=== PATIENT | female | born 1985 | race Caucasian/White ===

== ENCOUNTER → 2017-03-18 21:22 | Emergency (ER) | payer OTHER ==
[~2017-03-18 21:22] MED LIST: Cyclobenzaprine TAB* 10 MG PO ONE; Dexamethasone TAB* 4 MG PO ONE; Ketorolac INJ* 60 MG/2 ML VIAL IM ONE; oxyCODONE/Acetamin 5/325 MG* TAB PO ONE
--- NOTE | 2017-03-19 00:09 | ED ---
Back Pain - HPI Summary HPI Summary: 31F presents with acute on chronic back pain. She states that 9 years ago they messed up the epidural and she has an back pain in center of back since. She says over the past day though she has started to get tingling and pain down the legs. She denies any injury or fever. She denies any loss of bowel or bladder or saddle anaesthesia. She has been taking ibuprofen for pain. She denies any imaging to have been every done on her back. - History of Current Complaint Chief Complaint: EDBackInjuryPain Stated Complaint: BACK PAIN Time Seen by Provider: 03/18/17 22:04 Hx Last Menstrual Period: 3 month old Pain Intensity: 10 - Allergies/Home Medications Allergies/Adverse Reactions: Allergies Allergy/AdvReac Type Severity Reaction Status Date / Time Amoxicillin Allergy Severe anaphylaxis Verified 05/25/12 18:59 PMH/Surg Hx/FS Hx/Imm Hx Endocrine/Hematology History: Denies: Hx Anticoagulant Therapy Cardiovascular History: Denies: Hx Hypertension Infectious Disease History: No Infectious Disease History: Denies: Traveled Outside the [place] in Last 30 Days - Family History Known Family History: Positive: Hypertension Family History: No FHx allergies - Social History Alcohol Use: None Hx Substance Use: No Substance Use Type: Reports: None Smoking Status (MU): Heavy Every Day Tobacco Smoker Review of Systems Negative: Fever Negative: Chest Pain Negative: Shortness Of Breath Positive: Myalgia - back pain All Other Systems Reviewed And Are Negative: Yes Physical Exam Triage Information Reviewed: Yes Vital Signs On Initial Exam: Initial Vitals Temp Pulse Resp BP Pulse Ox 98.5 F 102 15 96/62 100 03/18/17 21:24 03/18/17 21:24 03/18/17 21:24 03/18/17 21:24 03/18/17 21:24 Vital Signs Reviewed: Yes Appearance: Positive: Well-Appearing Skin: Positive: Warm, Dry Head/Face: Positive: Normal Head/Face Inspection Eyes: Positive: Normal, Conjunctiva Clear Respiratory/Lung Sounds: Positive: Clear to Auscultation, Breath Sounds Present Cardiovascular: Positive: Normal, RRR Musculoskeletal: Positive: Strength/ROM Intact - back with pain, Other - tenderness across lower back, neg SLR, good pulses, capillary refill< 2 secs Psychiatric: Positive: Normal - Lexii Coma Scale Coma Scale Total: 15 Diagnostics - Vital Signs Vital Signs Temp Pulse Resp BP Pulse Ox 03/18/17 23:47 18 03/18/17 22:30 87 99/68 99 03/18/17 22:22 90 98 03/18/17 22:20 98/66 03/18/17 21:24 98.5 F 102 15 96/62 100 - Laboratory Lab Statement: Any lab studies that have been ordered have been reviewed, and results considered in the medical decision making process. - Radiology back Xray Interpretation: No Acute Changes Radiology Interpretation Completed By: ED Physician Back Pain Course/Dx - Course Course Of Treatment: 31F presents with acute on chronic back pain. She states that 9 years ago they messed up the epidural and she has an back pain in center of back since. She says over the past day though she has started to get tingling and pain down the legs. She denies any injury or fever. She denies any loss of bowel or bladder or saddle anaesthesia. on exam tender lower back. neg SLR. gave flexeril, steriod, toradol and percocet and says pain is better just legs feel jumpy. read xray as normal. will continue steriod and flexeril and told patient to follow up with primary. patient understands and agrees with plan. - Diagnoses Differential Diagnosis/HQI/PQRI: Positive: Herniated Disc, Strain, Sprain Provider Diagnoses: Back pain Discharge - Discharge Plan Condition: Good Disposition: HOME Prescriptions: Cyclobenzaprine TAB* [Flexeril 10 MG TAB*] 10 mg PO TID PRN #9 tab PRN Reason: Pain Methylprednisolone [Medrol Dosepak 4 MG*] 4 mg PO .SEE NITHYA INSTRUCTION #1 packet Patient Education Materials: Back Pain (ED) Referrals: No Primary Care Phys,NOPCP [Primary Care Provider] - Additional Instructions: Follow directions on package for Medrol pack Take muscle relaxers three times a day for 3 days Use ibuprofen or Tylenol for pain every 6 hours ice/heat area, move as much as possible Follow up with primary within 5 days Return to ED if develop any new or worsening symptoms
[2017-03-19 00:29] VITALS: BP 96/62
--- NOTE | 2017-03-19 07:42 | RAD ---
INDICATION: Back pain with radiation down the bilateral lower extremities. Patient reports an "epidural needle breaking off in her back" 9 years earlier. COMPARISON: None. TECHNIQUE: 5 views of the lumbar spine were obtained. FINDINGS: The vertebra are in normal alignment. No fracture is seen. Disc spaces appear maintained. No foreign bodies visualized. IMPRESSION: Normal radiographic series of the lumbar spine.
== END | disposition home or self-care (01) ==
LOC: ED 21:22
DX: M54.9 Dorsalgia, unspecified (principal); F17.210 Nicotine dependence, cigarettes, uncomplicated
CPT/HCPCS: 72110; 96372; 99283; A9270-GY; J1885; J8540